=== PATIENT | female | born 1990 | race Caucasian/White ===

== ENCOUNTER 2018-01-27 09:41 | Outpatient (CLI) | END 2018-01-27 11:08 | disposition home or self-care (01) ==

== ENCOUNTER 2018-01-27 11:20 | Emergency (ER) | END 2018-01-27 13:44 | disposition home or self-care (01) ==

== ENCOUNTER 2018-01-29 01:25 | Inpatient (IN) | END 2018-02-06 12:32 | disposition home or self-care (01) | DRG 806 ==

== ENCOUNTER 2018-06-29 06:35 | Day surgery (SDC) | payer OTHER ==
[2018-06-29] VITALS (16 sets, daily range): BP systolic 92–120; BP diastolic 59–78; PULSE 66–90; RESP 11–25; Ht 160 cm; Wt 94.5 kg
[~2018-06-29] VITALS: Ht 160 cm; Wt 94.5 kg
[~2018-06-29 06:35] MED LIST: CEFAZOLIN 2 GM/50 ML (PMX) 50 ML IVPB ONE; PRENAT PO; SOD CHLORIDE 0.9% 1,000 ML IV SCH
[2018-06-29] MEDS ORDERED: BUPIVACAINE 0.25% (MPF) 30 ML INJ ONE (09:08)
--- NOTE | 2018-06-29 09:14 | PREAC ---
Date/Time of Note Date/Time of Note DATE: 06/29/18 TIME: 09:13 Anesthesia Eval and Record Evaluation Time Pre-Procedure Interview DATE: 06/29/18 TIME: 09:13 Age 27 Sex female NPO: 8 hrs Preoperative diagnosis cholelithiasis Planned procedure laparoscopic cholecystectomy Past Medical History Past Medical History: Includes GI: Obesity Surgery & Anesthesia Issues No known issue Meds Anticoagulation: No Beta Diana within 24 hr: No Reason Beta Diana not given: Pt. not on B-Diana Discontinued Reported Medications Multivit/Min/Fol Ac/Iron/Pren* ( S*) 1 Tab Tab, 1 TAB PO DAILY, TAB 10/24/14 Current Medications Sodium Chloride 1,000 ml @ 75 mls/hr [id number] IV ; Start 06/29/18 at 06:00; Stop 06/29/18 at 19:19 Meds reviewed: Yes Allergies Coded Allergies: No Known Allergy (Unverified , 06/29/18) Allergies Reviewed: Yes Labs/Studies Labs Reviewed: Reviewed by anesthesiologist test: Negative Pre-procedure Exam Last vitals Vital Signs Date Temp Pulse Resp B/P (MAP) Pulse Ox O2 O2 Flow FiO2 Time Delivery Rate 06/29/18 98.3 90 16 117/78 100 Room Air 07:37 (91) Airway: Adequate mouth opening, Adequate thyromental dist Mallampati: Mallampati II Teeth: Normal Lung: Normal Heart: Normal ASA Physical Status ASA physical status: 2 Emergency: None Planned Anesthetic General/MAC: ETT Planned Pain Management Parenteral pain med Pre-operative Attestations Prior to commencing anesthesia and surgery, the patient was re-evaluated, there was verification of: *The patient's identity *The results of appropriate recent lab work and preoperative vital signs *The above evaluation not changing prior to induction *Anesthetic plan, risk benefits, alternative and complications discussed with patient/family; questions answered; patient/family understands, accepts and wishes to proceed. RAFAEL NIEVES Jun 29, 2018 09:14
[2018-06-29] MEDS ORDERED: PROPOFOL 100 ML ONE (09:21)
[2018-06-29] MEDS ORDERED: ROCURONIUM 50 MG INJ ONE (09:40)
[2018-06-29] MEDS ORDERED: CEFAZOLIN 1 GM INJ ONE (09:40)
[2018-06-29] MEDS ORDERED: LIDOCAINE 2% (SDV) 5 ML INJ ONE (09:40)
[2018-06-29] MEDS ORDERED: DEXAMETHASONE 4 MG/ML 1 ML INJ ONE (09:47)
[2018-06-29] MEDS ORDERED: ONDANSETRON 4 MG INJ ONE (09:48)
[2018-06-29] MEDS ORDERED: LABETALOL HCL 20MG INJ ONE (09:55)
[2018-06-29] MEDS ORDERED: GLYCOPYRROLATE 0.4 MG INJ ONE (10:08)
[2018-06-29] MEDS ORDERED: NEOSTIGMINE 10 MG INJ ONE (10:08)
--- NOTE | 2018-06-29 10:24 | PAC ---
Date/Time of Note Date/Time of Note DATE: 06/29/18 TIME: 10:24 Post-Anesthesia Notes Post-Anesthesia Note Last documented vital signs Vital Signs Date Temp Pulse Resp B/P (MAP) Pulse Ox O2 O2 Flow FiO2 Time Delivery Rate 06/29/18 98.3 90 16 117/78 100 Room Air 1024 (91) Activity: WNL Respiratory function: WNL Cardiovascular function: WNL Mental status: Baseline Pain reasonably controlled: Yes Hydration appropriate: Yes Nausea/Vomiting absent: Yes RAFAEL NIEVES Jun 29, 2018 10:24
--- NOTE | 2018-06-29 10:27 | OPR ---
Date/Time of Note Date/Time of Note DATE: 06/29/18 TIME: 10:25 Operative Report Procedure Date: Jun 29, 2018 Preoperative Diagnosis symptomatic gallstones Postoperative Diagnosis same Operation/Procedure Performed 1. laparoscopic cholecystectomy 2. therapeutic injection of subcutaneous local anesthesia Surgeon see signature line [employer] none Anesthesia Type: general Estimated Blood Loss: 10 - 50 ml's Transfusion none Specimen gallbladder Grafts/Implants none Complications none Pt Condition Post Procedure: stable Indications This is a 27-year-old female with symptomatic gallstones. She reports surgical excision of her gallbladder. Risks alternatives benefits and percent were discussed with the patient. Patient expressed understanding consents to the operation. Procedure Description Patient is taken to the OR and prepped and draped in usual sterile fashion. Surgical time was performed. IV antibiotics given. Infraumbilical transverse incisions with a 15 blade. Dissection with cautery was carried onto the fascia. The fascia was grasped with Thelma's and divided with curved Walsh scissors. 0 Vicryl U stitch was placed into the fascia. Hairston trocar was introduced. Pneumoperitoneum is established. Midepigastric 12 mm optical trochars placed under direct position. Right upper quadrant upper flank 5 mm optical trochars were placed under direct position. Upon initial inspection there is a distended gallbladder full of stones. The gallbladder is retracted by the fundus in a cephalad and lateral direction. [place] graspers were used to dissect out the cystic duct and cystic artery. The critical view was established. The cystic duct is divided with the clips proximally clipped distal and the division of the duct was performed with laparoscopic scissors. Cystic artery was divided 3 clips proximally and 1 clip distal lead. The artery was divided with laparoscopic scissors. The gallbladder was taken of the gallbladder bed with good hemostasis. The gallbladder is retrieved using Endo Catch bag. Ports were removed under direct position. 0 Vicryl U stitch was tied down. Skin was closed using skin franky. Therapeutic contains local anesthesia is injected at the incision site. Dry dressings were applied. Peter COMBS Jun 29, 2018 10:27
[2018-06-29] MEDS ORDERED: HYDROmorphONE 1 MG/5 ML IV SYRINGE IV ONE (10:28)
[2018-06-29] MEDS ORDERED: hydrALAzine 20 MG INJ IV PRN (10:30)
[2018-06-29] MEDS ORDERED: KETOROLAC 30 MG INJ IV PRN (10:30)
[2018-06-29] MEDS ORDERED: DIPHENHYDRAMINE 50 MG INJ IV PRN (10:30)
[2018-06-29] MEDS ORDERED: LABETALOL HCL 20MG INJ IV PRN (10:30)
[2018-06-29] MEDS ORDERED: MEPERIDINE 25 MG INJ IV PRN (10:30)
[2018-06-29] MEDS ORDERED: ALBUTEROL 0.083% (NEB) 2.5 MG/3 ML AMP HHN PRN (10:30)
[2018-06-29] MEDS ORDERED: HYDROCODONE/APAP (5/325) TAB PO ONE (10:30)
[2018-06-29] MEDS ORDERED: HYDROmorphONE 1 MG/5 ML IV SYRINGE IV PRN ×3 (10:30)
[2018-06-29] MEDS ORDERED: EPHEDrine SULFATE 50 MG/5 ML SYG IV PRN (10:30)
[2018-06-29] MEDS ORDERED: ONDANSETRON 4 MG INJ IV PRN (10:30)
[2018-06-29] MEDS ORDERED: FENTAnyl 50 MCG/ML VIAL IV PRN ×3 (10:30)
[2018-06-29] MEDS ORDERED: OXYCODONE/ACETAMINOPHEN (5/325) TAB PO PRN ×2 (10:30)
[2018-06-29] MEDS ORDERED: METOCLOPRAMIDE 10 MG INJ IV PRN (10:30)
== END 2018-06-29 12:45 | disposition home or self-care (01) ==
LOC: SDS 06:35
PROVIDERS: ATTEND Surgery
DX: K80.10 Calculus of gallbladder with chronic cholecystitis without obstruction (principal); E66.9 Obesity, unspecified; Z68.36 Body mass index [BMI] 36.0-36.9, adult
CPT/HCPCS: 47562; 84703; J0690; J1100; J1170; J2405; J2710; J3010; Z7512; Z7610; 88304